=== PATIENT | female | born 1970 | race Caucasian/White ===

== ENCOUNTER → 2019-08-23 13:17 | Outpatient (CLI) | payer OTHER, SELFPAY ==
--- NOTE | ~2019-08-23 | MM_ITS ---
EXAMINATION: MM screening priscila BI w monster HISTORY: Screening mammogram TECHNIQUE: Craniocaudal and mediolateral oblique 3-D tomosynthesis images were obtained and synthetic 2-D images were generated. CAD analysis was submitted and interpreted. COMPARISON: Comparison to multiple prior studies sequentially, with oldest reviewed study dated 07/16. BREAST PARENCHYMAL COMPOSITION: The breasts are extremely dense, which lowers the sensitivity of mamm ography. FINDINGS: There is a focal asymmetry laterally in the left breast on CC view. There is a cluster of n onspecific calcifications in the upper inner quadrant of the left breast. The right breast is stable without evidence for malignancy. IMPRESSION: 1. Focal left breast asymmetry laterally on CC view. Clustered indeterminate left breast calcificatio ns. 2. Additional mammographic views and possible breast ultrasound are recommended. BI-RADS Category 0: Incomplete: Needs additional imaging evaluation. Reviewed, dictated and finalized at location D. IMPRESSION: 1. Focal left breast asymmetry laterally on CC view. Clustered indeterminate le ft breast calcifications. 2. Additional mammographic views and possible breast ultrasound are recommended . BI-RADS Category 0: Incomplete: Needs additional imaging evaluation.
== END ==
PROVIDERS: PCP Family Medicine; Visit Provider Family Medicine
DX: Z12.31 Encounter for screening mammogram for malignant neoplasm of breast (principal); R92.8 Other abnormal and inconclusive findings on diagnostic imaging of breast
CPT/HCPCS: 77063; 77067

== ENCOUNTER → 2019-09-20 08:24 | Outpatient (CLI) | payer OTHER, SELFPAY ==
--- NOTE | ~2019-09-20 | MM_ITS ---
EXAMINATION: MM diagnostic mammo unilat LT HISTORY: Possible mass, microcalcifications reported on 08/23/2019 bilateral digital screening mammogra m TECHNIQUE: Additional 3-D tomosynthesis images of were performedthrough the surgical she has devices is a dysfunctional relationship were created as the left. CAD analysis was submitted and interpreted. High resolution breast ultrasound was performed. COMPARISON: 08/23/2019, 03/25/2017, 07/21/2011 bilateral digital screening mammogram examinations BREAST PARENCHYMAL COMPOSITION: There are scattered areas of fibroglandular density. FINDINGS: MAMMOGRAPHIC FINDINGS: Grouped microcalcifications in the upper inner quadrant of the left breast, with benign features, lik kimberli superficial calcifications of a small fibroadenoma or microhematoma. 8.5 mm mass in the outer mid left breast. Additional URI and responsibility and is present in the ce ntral I am going to appears there is a greater fissure The brain or erosive the ureter is present in the thousand and 20 is only they are DILAN the result and portable images were 10 position transverse or transverse is 23 minutes from 3 hour on 1 0924 hours History is there is some marginal been right digital surgery and position or R. She progressed to a v claudy if they visited a ureteral she is mild degenerative loss of ratio is 0 and they were placed is Cardiomegaly with a loosening and breast MRI without radiographic Z1 please refer to the water was in this position. Exposed all levels. The transcribed by court or restaging] I also is present in the l iver U The cecum and lower lung is moderately ULTRASOUND: There is no evidence of focal abnormal solid or cystic lesion in the vicinity of the IMPRESSION: 1. 2. Reviewed, dictated and finalized at location A. IMPRESSION: 1. 2.
--- NOTE | ~2019-09-20 | US_ITS ---
EXAMINATION: US breast LT complete HISTORY: Possible mass, microcalcifications reported on 08/23/2019 bilateral digital screening mammogra m TECHNIQUE: Additional 3-D tomosynthesis images of were performed and synthetic 2-D images were genera madie. CAD analysis was submitted and interpreted. High resolution breast ultrasound was performed. COMPARISON: 08/23/2019, 03/25/2017, 07/21/2011 bilateral digital screening mammogram examinations BREAST PARENCHYMAL COMPOSITION: The breasts are heterogeneously dense, which may obscure small masses . FINDINGS: MAMMOGRAPHIC FINDINGS: Grouped microcalcifications in the upper inner quadrant of the left breast, with benign features, lik kimberli superficial calcifications of a small fibroadenoma or microhematoma. There are additional benign calcifications. 8.5 mm mass in the outer mid left breast. Additional masses cannot be excluded due to the heterogeneo usly dense stroma. Left breast ultrasound examination was therefore performed. ULTRASOUND: 3:00 4 cm from nipple: Parallel circumscribed 5 x 7 x 7 mm lymph node with benign features. 6:00 2 cm from nipple: Parallel circumscribed 2.6 x 4.3 x 3.3 mm sonolucency consistent with cyst 8:00 4 cm from nipple: 3 x 4 x 4.4 mm simple cyst 9:00 6 cm from nipple: Parallel circumscribed 2.5 x 4.8 x 7 mm sonolucency consistent with small cyst or other benign process IMPRESSION: 1. No mammographic evidence of malignancy 2. Routine mammographic screening follow-up is recommended. BI-RADS Category 2: Benign finding(s). Reviewed, dictated and finalized at location A.
== END ==
PROVIDERS: Visit Provider Family Medicine
DX: R92.8 Other abnormal and inconclusive findings on diagnostic imaging of breast (principal)
CPT/HCPCS: 76641; 77065

== ENCOUNTER 2020-10-14 03:03 | Day surgery (SDC) | payer OTHER, SELFPAY ==
[2020-10-03 15:39] VITALS: BMI 29.0
[2020-10-14 07:47] VITALS: BP 112/73; PULSE 65; RESP 16; TEMP 37; O2SAT 99; BMI 29.8
--- NOTE | 2020-10-14 07:50 | WPDANESEPPF ---
Anes - Initial Pre Proc Eval Procedure: Operation Date: 10/14/20 08:30 Proposed Procedures p Screening Colonoscopy - Oleksandr Wilde MD Date/Time: 10/14/20 07:50 Surgeon: Oleksandr Wilde MD Pre Op Diagnosis: neoplasm screening Patient Data Age: 50 Gender: F Height: 1.65 m Weight: 81.4 kg Last Vital Signs Temp 37.0 C 10/14/20 07:47 Pulse 65 10/14/20 07:47 Resp 16 10/14/20 07:47 BP 112/73 10/14/20 07:47 Pulse Ox 99 10/14/20 07:47 Allergies Allergy/AdvReac Type Severity Reaction Status Date / Time No Known Allergies Allergy Verified 10/14/20 07:46 Home Medications Medication Instructions Recorded Confirmed Type vilazodone 20 mg tablet 20 mg PO DAILY #90 tablet 07/14/19 10/03/20 Rx buspirone 7.5 mg tablet 7.5 mg PO BID 07/10/20 10/03/20 History Patient hx anesthesia problems: none Family hx anesthesia problems: none PMFSH Past Medical History Medical History (Updated 10/14/20 @ 07:51 by Gilberto Henderson MD) BMI 29.0-29.9,adult MDD (major depressive disorder), recurrent episode, moderate Spondylosis of cervical spine with radiculopathy Family History Family History (Updated 07/19/20 @ 08:13 by KRISSY WallerC) Mother Family history of malignant neoplasm of breast Patient's mother is Grandparent Family history of malignant neoplasm of breast Carcinoma of colon Father's mother Skin cancer Hypertension Father Cerebrovascular accident Hypertension Other Malignant neoplasm of prostate Social History Social History (Updated 07/19/20 @ 08:02 by Puja Espana CMA) Smoking packs per day: 0.5 Smoking cigarettes per day: 10.0 Years smoked: 15 Smoking pack-years: 7.50 Smoking status: Never smoker Tobacco type: cigarettes Second hand tobacco smoke exposure: No Smoking end date: 02/22/99 Alcohol intake: never Substance use: never Substance use type: does not use Living arrangements: with family Gender identity (if verbalized by the patient): Female Spiritual care concerns: No Anes - Eval Final PreProcedure Day of Procedure 10/14/20 07:50 Patient weight: overweight Heart: regular rate and rhythm Lungs: clear to auscultation and normal air movement Airway: Mallampati scale class II Neurological: alert and oriented Last oral intake: >/= 8 hours ASA classification: II Emergent: no Anesthetic plan: proceed Anesthesia type and monitoring: general GIVS Informed Consent: The patient's anesthetic plan and its attendant risks and benefits were discussed with the patient/family/POA. Questions were solicited and answers provided to the satisfaction of the patient/family/POA.
[2020-10-14] MEDS: LACTATED RINGERS 1,000 ML 150 ML IV CONT (07:56)
--- NOTE | 2020-10-14 08:23 | PM.HPGS ---
History of Present Illness History of Present Illness Consent: Risks, benefits, and alternatives have been discussed and questions answered. Patient agrees to proceed with procedure. Chief complaint: neoplasm screening Narrative: Jenifer Hatfield is a 50 year old female here for first screening colonoscopy Review of Systems Constitutional: Constitutional: Denies headache(s) and Denies weakness Eyes: Eyes: Denies blurry vision ENT: Reports Normal hearing present, Denies headache(s) and Denies neck pain Cardiovascular: Cardiovascular: Denies chest pain and Denies dyspnea Respiratory: Respiratory: Denies dyspnea Gastrointestinal: Gastrointestinal: Reports no additional gastrointestinal complaints Genitourinary: Genitourinary: Denies dysuria Musculoskeletal: Musculoskeletal: Denies neck pain Integumentary/Breasts: Skin/Breast: Denies dry skin Neurologic: Reports Normal hearing present, Denies headache(s) and Denies weakness Psychiatric: Psychiatric: Denies anxiety Endocrine: Endocrine: Denies change in body appearance Hematologic/Lymphatic: Hematologic/Lymphatic: Denies easy bleeding Allergic/Immunologic: Allergic/Immunologic: Denies urticaria PMFSH Past Medical History Medical History (Updated 10/14/20 @ 08:23 by Oleksandr Wilde MD) BMI 29.0-29.9,adult Colon cancer screening MDD (major depressive disorder), recurrent episode, moderate Spondylosis of cervical spine with radiculopathy Family History Family History (Updated 07/19/20 @ 08:13 by KRISSY WallerC) Mother Family history of malignant neoplasm of breast Patient's mother is Grandparent Family history of malignant neoplasm of breast Carcinoma of colon Father's mother Skin cancer Hypertension Father Cerebrovascular accident Hypertension Other Malignant neoplasm of prostate Social History Social History (Updated 07/19/20 @ 08:02 by Puja Espana CMA) Smoking packs per day: 0.5 Smoking cigarettes per day: 10.0 Years smoked: 15 Smoking pack-years: 7.50 Smoking status: Never smoker Tobacco type: cigarettes Second hand tobacco smoke exposure: No Smoking end date: 02/22/99 Alcohol intake: never Substance use: never Substance use type: does not use Living arrangements: with family Gender identity (if verbalized by the patient): Female Spiritual care concerns: No Meds Home Medications and Allergies Home Medications Medication Instructions Recorded Confirmed Type vilazodone 20 mg tablet 20 mg PO DAILY #90 tablet 07/14/19 10/03/20 Rx buspirone 7.5 mg tablet 7.5 mg PO BID 07/10/20 10/03/20 History Allergies Allergy/AdvReac Type Severity Reaction Status Date / Time No Known Allergies Allergy Verified 10/14/20 07:46 Vital Signs Vital Signs - 24 hr 10/14/20 07:47 Temperature 98.6 F Pulse Rate 65 Respiratory Rate 16 Blood Pressure 112/73 Pulse Oximetry 99 Exam Const: General: comfortable and no acute distress HENMT: General nose exam: Normal nares present Eyes: General: appearance normal, both eyes and all related structures Neck: Neck: no JVD Resp: Auscultation: clear to auscultation bilaterally Cardio: Rate: regular rate Rhythm: regular rhythm GI: Inspection: non-distended GI Palp: Yes Soft to palpation Skin: General skin exam: normal color Neuro: General: gait normal Speech: normal speech Extrem: General: normal to inspection Psych: Mental Status: mental status grossly normal Assessment and Plan Assessment and plan (1) Colon cancer screening: Code(s): Z12.11 - Encounter for screening for malignant neoplasm of colon Status: Acute Assessment and Plan: colonoscopy
[2020-10-14 08:44] VITALS: BP 88/55; PULSE 70; RESP 16; O2SAT 99
[2020-10-14 08:54] VITALS: BP 103/63; PULSE 67; RESP 13; O2SAT 99
[2020-10-14 09:04] VITALS: BP 111/71; PULSE 56; RESP 17; O2SAT 99
== END 2020-10-14 09:20 | disposition home or self-care (01) ==
PROVIDERS: PCP Family Medicine; Visit Provider Internal Medicine Gastroenterology
PROC: 0DJD8ZZ Inspection of Lower Intestinal Tract, Via Natural or Artificial Opening Endoscopic (ICD-10-PCS; CPT 45378; principal; 2020-10-14 08:30)
DX: Z12.11 Encounter for screening for malignant neoplasm of colon (principal); K57.30 Diverticulosis of large intestine without perforation or abscess without bleeding; K64.8 Other hemorrhoids; F32.9 Major depressive disorder, single episode, unspecified; M47.22 Other spondylosis with radiculopathy, cervical region; F17.210 Nicotine dependence, cigarettes, uncomplicated; K63.5 Polyp of colon
CPT/HCPCS: 45385; 88305; J2704; J7120

== ENCOUNTER → 2020-10-21 15:13 | Outpatient (CLI) | payer OTHER, SELFPAY ==
--- NOTE | ~2020-10-21 | MM_ITS ---
EXAMINATION: MM screening priscila BI w monster HISTORY: Screening TECHNIQUE: Craniocaudal and mediolateral oblique 3-D tomosynthesis images were obtained and synthetic 2-D images were generated. CAD analysis was submitted and interpreted. COMPARISON: Comparison to multiple prior studies sequentially, with oldest reviewed study dated 07/20. BREAST PARENCHYMAL COMPOSITION: The breasts are heterogeneously dense, which may obscure small masses . FINDINGS: There are developing bilateral breast asymmetries there are benign bilateral breast calcifi cations. No architectural distortion is identified. IMPRESSION: 1. Developing bilateral breast asymmetries. 2. Additional mammographic views and possible breast ultrasound are recommended. BI-RADS Category 0: Incomplete: Needs additional imaging evaluation. Reviewed, dictated and finalized at location A. IMPRESSION: 1. Developing bilateral breast asymmetries. 2. Additional mammographic views and possible breast ultrasound are recommended . BI-RADS Category 0: Incomplete: Needs additional imaging evaluation.
== END ==
PROVIDERS: PCP Family Medicine; Visit Provider Family Medicine
DX: Z12.31 Encounter for screening mammogram for malignant neoplasm of breast (principal); R92.8 Other abnormal and inconclusive findings on diagnostic imaging of breast
CPT/HCPCS: 77063; 77067

== ENCOUNTER 2020-11-12 12:53 | Outpatient (CLI) | payer OTHER, SELFPAY ==
--- NOTE | ~2020-11-12 | MM_ITS ---
EXAMINATION: MM diagnostic priscila BI w monster HISTORY: Bilateral breast asymmetries on screening mammogram TECHNIQUE: Additional 3-D tomosynthesis images of the breasts were performed and synthetic 2-D images were generated. CAD analysis was submitted and interpreted. COMPARISON: 10/21/2020, 09/20/2019, 08/23/2019, 03/25/2017 FINDINGS: There is a return to baseline fibroglandular appearance with spot compression of the right breast in the area questioned on screening mammogram. An 8 mm low-density obscured mass is seen in th e middle third of the central left breast 6 cm from the nipple consistent with a cyst seen on prior d iagnostic imaging. No suspicious mass is identified. IMPRESSION: 1. No mammographic evidence of malignancy. 2. Recommend routine screening mammography in one year. BI-RADS Category 2: Benign finding(s). Reviewed, dictated and finalized at location A.
== END 2020-11-12 12:54 | disposition home or self-care (01) ==
LOC: ANHIMG 12:55
PROVIDERS: PCP Family Medicine; Visit Provider Physician Assistant
DX: N63.25 Unspecified lump in the left breast, overlapping quadrants (principal)
CPT/HCPCS: 77062; 77066; G0279

== ENCOUNTER → 2022-04-02 11:17 | Outpatient (CLI) | payer OTHER, SELFPAY ==
--- NOTE | ~2022-04-02 | MM_ITS ---
EXAMINATION: MM screening priscila BI w monster HISTORY: Screening mammogram TECHNIQUE: Craniocaudal and mediolateral oblique 3-D tomosynthesis images were obtained and synthetic 2-D images were generated. Bilateral rotated lateral CC views. CAD analysis was submitted and interp reted. COMPARISON: 11/12/2020 diagnostic bilateral mammogram 10/21/2020 bilateral screening mammogram 09/20/2019 diagnostic left mammogram 09/12/2019, 03/25/2017 bilateral screening mammogram examinations BREAST PARENCHYMAL COMPOSITION: The breasts are heterogeneously dense, which may obscure small masses . FINDINGS: Benign appearing stable circumscribed approximately 6 mm opacity in the inner aspect of the mid to lower outer quadrant of the left breast, previously reported as simple cyst. Scattered bilateral benign calcifications. There is no evidence of suspicious mass, calcification, or architectural distortion to suggest malign mica in either breast. There has been no suspicious interval change. IMPRESSION: 1. No mammographic evidence of malignancy. 2. Recommend routine screening mammography in one year. BI-RADS Category 2: Benign finding(s). Reviewed, dictated and finalized at location A. [employer]
== END ==
PROVIDERS: PCP Family Medicine; Visit Provider Obstetrics & Gynecology
DX: Z12.31 Encounter for screening mammogram for malignant neoplasm of breast (principal)
CPT/HCPCS: 77063; 77067

== ENCOUNTER 2023-11-04 15:45 | Outpatient (CLI) | payer OTHER, SELFPAY ==
--- NOTE | ~2023-11-04 | MM_ITS ---
EXAMINATION: MM screening priscila BI w monster HISTORY: Screening mammogram, family history of breast cancer in her mother. TECHNIQUE: Craniocaudal and mediolateral oblique 3-D tomosynthesis images were obtained and synthetic 2-D images were generated. CAD analysis was submitted and interpreted. COMPARISON: 04/02/2022, 10/21/2020, 08/23/2019 BREAST PARENCHYMAL COMPOSITION:Dense: The breasts are heterogeneously dense, which may obscure small masses. FINDINGS: No suspicious mass, calcification, or architectural distortion are identified in either galindo ast to suggest malignancy. There has been no suspicious interval change. IMPRESSION: No mammographic evidence of malignancy. Recommend routine screening mammography in one year. BI-RADS Category 1: Negative Reviewed, dictated and finalized at location .
== END 2023-11-04 15:46 | disposition home or self-care (01) ==
LOC: MICIMG 15:46
PROVIDERS: PCP Family Medicine; Visit Provider Family Medicine
DX: Z12.31 Encounter for screening mammogram for malignant neoplasm of breast (principal)
CPT/HCPCS: 77063; 77067

== ENCOUNTER 2023-12-23 00:49 | Day surgery (SDC) | payer OTHER, SELFPAY ==
[2023-12-09 13:59] VITALS: BMI 33.7
[2023-12-23 10:06] VITALS: BP 133/80; PULSE 85; RESP 18; TEMP 36.6; O2SAT 98; BMI 33.0
[2023-12-23] MEDS: LACTATED RINGERS 1,000 ML 150 ML IV CONT (10:23)
[2023-12-23 10:26] LABS: BEDSIDEPREGUCG Negative (Negative)
--- NOTE | 2023-12-23 11:20 | WPDANESEPPF ---
Anes - Initial Pre Proc Eval Procedure: Operation Date: 12/23/23 11:00 Proposed Procedures p Screening Colonoscopy - Candelario Ferreira MD Date/Time: 12/23/23 11:20 Surgeon: Candelario Ferreira MD Pre Op Diagnosis: Hx Colon Polyps Patient Data Age: 53 Gender: F Height: 1.65 m Weight: 90 kg Last Vital Signs Temp 36.6 C 12/23/23 10:06 Pulse 85 12/23/23 10:06 Resp 18 12/23/23 10:06 BP 133/80 12/23/23 10:06 Pulse Ox 98 12/23/23 10:06 O2 Del Method Room Air 12/23/23 10:06 Allergies Allergy/AdvReac Type Severity Reaction Status Date / Time No Known Allergies Allergy Verified 12/23/23 10:11 Home Medications Medication Instructions Recorded Confirmed Type clonazepam 0.5 mg tablet 0.5 mg PO DAILY 10/05/22 12/23/23 History paroxetine HCl 20 mg tablet (Paxil) 20 mg PO DAILY 06/24/23 12/23/23 History buspirone 15 mg tablet 15 mg PO BID 12/09/23 12/23/23 History estradiol 0.05 mg/24 hr semiweekly 1 patch transdermal WEEKLY 12/09/23 12/23/23 History transdermal patch progesterone micronized 200 mg 200 mg PO DAILY 12/09/23 12/23/23 History capsule Laboratory Tests 12/23/23 10:24 POC Urine HCG, Qual Negative (Negative) Patient hx anesthesia problems: none Family hx anesthesia problems: none Results Review: All pre-operative results and documents have been reviewed as part of the pre-operative evaluation. [facility] Past Medical History Medical History BMI 29.0-29.9,adult Colon cancer screening MDD (major depressive disorder), recurrent episode, moderate Spondylosis of cervical spine with radiculopathy Family History Family History Mother Family history of malignant neoplasm of breast Patient's mother is Grandparent Family history of malignant neoplasm of breast Carcinoma of colon Father's mother Skin cancer Hypertension Father Cerebrovascular accident Hypertension Other Malignant neoplasm of prostate Social History Social History Social History: Smoking packs per day: 0.5 Smoking cigarettes per day: 10.0 Years smoked: 15 Smoking pack-years: 7.50 Smoking status: Former smoker Tobacco type: cigarettes Second hand tobacco smoke exposure: No Smoking end date: 02/22/99 Alcohol intake: current Alcohol use details: rarely Substance use: never Substance use type: does not use Lack of Transportation: No Lack of Food: Never True Current Housing: I Have Housing Concerned About Future Housing: No Difficulty Paying Gas/Electric Bills: No Difficulty Paying for Meds: No Currently Unemployed: No Education: Decline to Answer Difficulty w/ Childcare or Family Care: No Living arrangements: with family Additional living arrangements comments: with Occupation/Education: occupation Gender identity (if verbalized by the patient): Female Sexual Orientation (if Verbalized by the Patient): Straight or Heterosexual Spiritual care concerns: No Anes - Eval Final PreProcedure Day of Procedure 12/23/23 11:20 Patient weight: overweight Heart: regular rate and rhythm Lungs: clear to auscultation Airway: Mallampati scale class II Neurological: alert and oriented Last oral intake: >/= 8 hours ASA classification: II Emergent: no Anesthetic plan: proceed Anesthesia type and monitoring: general GIVS Results Review: All pre-operative results and documents have been reviewed as part of the pre-operative evaluation. Informed Consent: The patient's anesthetic plan and its attendant risks and benefits were discussed with the patient/family/POA. Questions were solicited and answers provided to the satisfaction of the patient/family/POA.
--- NOTE | 2023-12-23 11:20 | PM.IMHP ---
H&P: HPI History of Present Illness Date/Time: 12/23/23 11:20 Chief Complaint: History of colonic polyps Narrative: The patient has a history of colonic polyps, the last colonoscopy was 5 years ago Review of Systems Review of Systems: All systems reviewed & are unremarkable except as noted in HPI and below PMFSH Past Medical History Medical History BMI 29.0-29.9,adult Colon cancer screening MDD (major depressive disorder), recurrent episode, moderate Spondylosis of cervical spine with radiculopathy Family History Family History Mother Family history of malignant neoplasm of breast Patient's mother is Grandparent Family history of malignant neoplasm of breast Carcinoma of colon Father's mother Skin cancer Hypertension Father Cerebrovascular accident Hypertension Other Malignant neoplasm of prostate Social History Social History Social History: Smoking packs per day: 0.5 Smoking cigarettes per day: 10.0 Years smoked: 15 Smoking pack-years: 7.50 Smoking status: Former smoker Tobacco type: cigarettes Second hand tobacco smoke exposure: No Smoking end date: 02/22/99 Alcohol intake: current Alcohol use details: rarely Substance use: never Substance use type: does not use Lack of Transportation: No Lack of Food: Never True Current Housing: I Have Housing Concerned About Future Housing: No Difficulty Paying Gas/Electric Bills: No Difficulty Paying for Meds: No Currently Unemployed: No Education: Decline to Answer Difficulty w/ Childcare or Family Care: No Living arrangements: with family Additional living arrangements comments: with Occupation/Education: occupation Gender identity (if verbalized by the patient): Female Sexual Orientation (if Verbalized by the Patient): Straight or Heterosexual Spiritual care concerns: No Meds Home Medications and Allergies Home Medications Medication Instructions Recorded Confirmed Type clonazepam 0.5 mg tablet 0.5 mg PO DAILY 10/05/22 12/23/23 History paroxetine HCl 20 mg tablet (Paxil) 20 mg PO DAILY 06/24/23 12/23/23 History buspirone 15 mg tablet 15 mg PO BID 12/09/23 12/23/23 History estradiol 0.05 mg/24 hr semiweekly 1 patch transdermal WEEKLY 12/09/23 12/23/23 History transdermal patch progesterone micronized 200 mg 200 mg PO DAILY 12/09/23 12/23/23 History capsule Allergies Allergy/AdvReac Type Severity Reaction Status Date / Time No Known Allergies Allergy Verified 12/23/23 10:11 Vital Signs Vital Signs - 24 hr 12/23/23 10:06 Temperature 97.8 F Pulse Rate 85 Respiratory Rate 18 Blood Pressure 133/80 Pulse Oximetry 98 Oxygen Delivery Room Air Assessment and Plan Assessment and plan (1) Colon cancer screening: Code(s): Z12.11 - Encounter for screening for malignant neoplasm of colon Status: Acute Assessment and Plan: The patient is deemed a good candidate for the procedure. Consent signed. Will proceed. Plan The patient is deemed a good candidate for the procedure. Consent signed. Will proceed.
[2023-12-23 11:43] VITALS: BP 113/71; PULSE 81; RESP 14; O2SAT 98
[2023-12-23 11:53] VITALS: BP 122/77; PULSE 60; RESP 16; O2SAT 100
[2023-12-23 12:03] VITALS: BP 129/80; PULSE 72; RESP 15; O2SAT 100
== END 2023-12-23 12:15 | disposition home or self-care (01) ==
PROVIDERS: Nurse Anesthetist, Certified Registered; PCP Family Medicine; Referring Provider Internal Medicine Gastroenterology; Visit Provider Internal Medicine Gastroenterology
PROC: 0DJD8ZZ Inspection of Lower Intestinal Tract, Via Natural or Artificial Opening Endoscopic (ICD-10-PCS; CPT 45378; principal; 2023-12-23 11:00)
DX: Z12.11 Encounter for screening for malignant neoplasm of colon (principal); F33.9 Major depressive disorder, recurrent, unspecified; M47.22 Other spondylosis with radiculopathy, cervical region; Z87.891 Personal history of nicotine dependence; Z86.0100 Personal history of colon polyps, unspecified; Z80.0 Family history of malignant neoplasm of digestive organs; Z80.3 Family history of malignant neoplasm of breast; Z84.0 Family history of diseases of the skin and subcutaneous tissue; Z80.42 Family history of malignant neoplasm of prostate; Z82.49 Family history of ischemic heart disease and other diseases of the circulatory system
CPT/HCPCS: 45378; J2003; J2704; J7120

== ENCOUNTER 2024-01-07 10:03 | Outpatient (CLI) | payer OTHER, SELFPAY ==
--- NOTE | ~2024-01-07 | XR_ITS ---
EXAMINATION: XR ankle LT min 3V DATE: 01/07/2024 10:15 INDICATION: Chronic left ankle pain TECHNIQUE: Anteroposterior, oblique, mortise, and lateral views of the left ankle were obtained. COMPARISON: None. FINDINGS: Alignment is normal. No fracture. Joint spaces are normal. Small plantar calcaneal spur. Soft tissues are unremarkable. IMPRESSION: 1. Small plantar calcaneal spur. Otherwise unremarkable left ankle radiographs. Reviewed, dictated and finalized at location B. [employer]
== END 2024-01-07 10:04 | disposition home or self-care (01) ==
PROVIDERS: PCP Family Medicine; Visit Provider Family Medicine
DX: M25.572 Pain in left ankle and joints of left foot (principal); M77.32 Calcaneal spur, left foot
CPT/HCPCS: 73610

== ENCOUNTER 2024-11-06 15:36 | Outpatient (CLI) | payer OTHER, SELFPAY ==
--- NOTE | ~2024-11-06 | MM_ITS ---
EXAMINATION: MM screening priscila BI w monster HISTORY: Screening TECHNIQUE: Craniocaudal and mediolateral oblique 3-D tomosynthesis images were obtained and synthetic 2-D images were generated. CAD analysis was submitted and interpreted. COMPARISON: 04/02/2022 BREAST PARENCHYMAL COMPOSITION: The breasts are heterogeneously dense, which may obscure small masses. FINDINGS: There is no evidence of suspicious mass, calcification, or architectural distortion to suggest malignancy. There has been no suspicious interval change. IMPRESSION: 1. No mammographic evidence of malignancy. Recommend routine screening mammography in one year. BI-RADS Category 2: Benign finding(s) Reviewed, dictated and finalized at location Q. IMPRESSION: 1. No mammographic evidence of malignancy. Recommend routine screening mammogra phy in one year. BI-RADS Category 2: Benign finding(s)
== END 2024-11-06 15:37 | disposition home or self-care (01) ==
LOC: MICIMG 15:39
PROVIDERS: PCP Family Medicine; Visit Provider Family Medicine
DX: Z12.31 Encounter for screening mammogram for malignant neoplasm of breast (principal)
CPT/HCPCS: 77063; 77067